=== PATIENT | male | born 1995 | race Caucasian/White ===

== ENCOUNTER 2021-11-16 23:33 | Emergency (ER) | payer BC ==
[~2021-11-16] VITALS: Ht 167.6 cm; Wt 77.6 kg
[~2021-11-16 23:33] MED LIST: CRUTCH1 EACH; KEFLEX500 MG PO; NORCO 5-325 TA1 EACH PO
== END 2021-11-17 02:14 | disposition home or self-care (01) ==
LOC: ED 23:33
DX: S61.012A Laceration without foreign body of left thumb without damage to nail, initial encounter (principal); Z23 Encounter for immunization; W26.8XXA Contact with other sharp object(s), not elsewhere classified, initial encounter
CPT/HCPCS: 12001; 90471; 90715; 99282-25

== ENCOUNTER 2023-10-15 18:58 | Emergency (ER) | payer SELFPAY ==
[~2023-10-15] VITALS: Ht 167.6 cm; Wt 83.9 kg
[2023-10-15 19:42] VITALS: BP 126/61
== END 2023-10-15 19:44 | disposition home or self-care (01) ==
LOC: ED 18:58
DX: S61.412A Laceration without foreign body of left hand, initial encounter (principal); X58.XXXA Exposure to other specified factors, initial encounter; Y93.G1 Activity, food preparation and clean up
CPT/HCPCS: 12001; 99282